=== PATIENT | female | born 1975 | race Caucasian/White ===

== ENCOUNTER 2018-03-25 01:16 | Outpatient (CLI) | payer MEDICAID, SELFPAY ==
--- NOTE | 2018-03-25 12:58 | DI.MAMMO_ITS ---
SYMPTOM/DIAGNOSIS: SCREENING, BASELINE, Z12.31 MAMMOGRAMS: Mammograms were interpreted according to the usual protocol including computer analysis with CAD system, tomosynthesis and C view imaging. The breast tissue is of moderate radiodensity. There is no dominant mass. There are no suspicious calcifications. A tiny well circumscribed area of nodularity is noted in the upper outer quadrant of the right breast and could represent a small cyst or adenoma. Further evaluation with a mediolateral and craniocaudad compression spot film and ultrasound is recommended on this patient with baseline examination. Breast density, Category B. MQSA ASSESSMENT OF FINDINGS: Incomplete: Needs additional imaging evaluation. Category 0. Patient will receive a letter notifying them of these results. IMPRESSION: Category 0. Further evaluation with compression spot films and ultrasound. BI-RADS category B. There are scattered areas of fibroglandular density.
== END 2018-03-25 01:36 ==
PROVIDERS: PCP Family Medicine; Visit Provider Nurse Practitioner Family
DX: Z12.31 Encounter for screening mammogram for malignant neoplasm of breast (principal); R92.8 Other abnormal and inconclusive findings on diagnostic imaging of breast
CPT/HCPCS: 77063; 77067

== ENCOUNTER 2018-04-01 05:15 | Outpatient (CLI) | payer MEDICAID, SELFPAY ==
--- NOTE | 2018-04-01 10:00 | DI.MAMMO_ITS ---
SYMPTOMS/DIAGNOSIS: NODULARITY UPPER QUADRANT OF RT BREAST, F/U MAMMO ADDITIONAL MAMMOGRAPHIC VIEWS OF THE RIGHT BREAST: Additional images are interpreted according to the usual protocol including tomosynthesis and 2D imaging. Additional mammographic views were obtained to evaluate small upper outer quadrant area of peripheral nodularity in the right breast. Additional mammographic views confirm well circumscribed nodule measuring 5 mm in greatest diameter with a clearly defined hilum. The findings are consistent with an intramammary lymph node. No additional work up recommended. Category I. Breast density Category B. MQSA ASSESSMENT OF FINDINGS: Negative. Category 1. Patient will receive a letter notifying them of these results. BI-RADS category B. There are scattered areas of fibroglandular density.
== END 2018-04-01 05:35 ==
PROVIDERS: PCP Family Medicine; Visit Provider Nurse Practitioner Family
DX: Z12.31 Encounter for screening mammogram for malignant neoplasm of breast (principal); R92.8 Other abnormal and inconclusive findings on diagnostic imaging of breast; N60.81 Other benign mammary dysplasias of right breast
CPT/HCPCS: 77063; 77067

== ENCOUNTER 2019-03-19 10:36 | Outpatient (REF) | payer OTHER, SELFPAY ==
--- NOTE | 2019-03-19 10:15 | PAPFT_PTH ---
PATIENT: Emerita Blake LOC: [facility] U#:[id number] AGE/SX: 43/F ROOM: RE03/19/[address]: STEPHANIE Bansal : 1975 BED: DIS: 03/19/2019 SPEC #: [id number] RECD: 03/19/19 12:52 STATUS: TEMO REQ #: [id number] RAYMUNDO: 03/19/19 10:[address]: Poppy Tse DEPT: [facility] Cytology RECD BY: Jenelle Valdovinos ENTERED: 03/19/19 12:52 SP TYPE: PAPFT OTHR DR: Jared Ang MD Tissues: 1 - CX/ENDOCX FOR PAP SMEARS Procedures: PAP THIN PREP/[facility] Screening HPV DNA PROBE Comments: [id number]
== END 2019-03-19 10:56 ==
LOC: LBN 10:36
PROVIDERS: PCP Family Medicine; Visit Provider Nurse Practitioner Family
DX: Z12.4 Encounter for screening for malignant neoplasm of cervix (principal); Z11.51 Encounter for screening for human papillomavirus (HPV)
CPT/HCPCS: 88142; 87624

== ENCOUNTER 2019-07-16 19:34 | Outpatient (REF) | payer OTHER, SELFPAY ==
[2019-07-16 20:09] LABS: Abs Immature Grans 0.01 k/cumm (0.0-0.09); Absolute Basophil Count 0.03 k/cumm (0.0-0.2); Absolute Eosinophil Count 0.17 k/cumm (0.0-0.7); Absolute Lymphocyte Count 2.21 k/cumm (1.2-3.4); Absolute Monocyte Count 0.37 k/cumm (0.11-0.7); Absolute Neutrophil Count 2.59 k/cumm (1.2-6.7); Basophils % 0.6; Eosinophils % 3.2; HCT 40.8 % (36.0-46.0); HGB 13.6 g/dL (12.0-15.5); Immature Grans % 0.2 %; Lymphocytes % 41.1; Mean Corp. HGB Concentration 33.3 g/dL (32.0-36.0); Mean Corpuscular Hemoglobin 30.6 pg (27.0-33.0); Mean Corpuscular Volume 91.9 fL (80-95); Mean Platelet Volume 9.1 fL (8.0-11.0); Monocytes % 6.9; Platelet Count 374 x1000/uL (130-400); RBC 4.44 m/cumm (4.00-5.20); RBC Distribution Width 12.2 % (11.7-14.6); White Blood Cell Count 5.38 k/cumm (4.4-10.8)
[2019-07-19 11:39] LABS: Lyme Ab w Rflx to Lyme Confirm Negative (Negative)
[2019-07-21 22:50] LABS: Anaplasma phagocytophilum Negative (Negative); B. miyamotoi PCR Negative (Negative); Babesia divergens/MO-1 Negative (Negative); Babesia duncani Negative (Negative); Babesia microti Negative (Negative); Ehrlichia chaffeensis Negative (Negative); Ehrlichia ewingii/canis Negative (Negative); Ehrlichia muris eauclairensis Negative (Negative)
== END 2019-07-16 19:54 ==
LOC: LBN 19:34
PROVIDERS: PCP Family Medicine; Visit Provider Nurse Practitioner Family
DX: R21 Rash and other nonspecific skin eruption (principal)
CPT/HCPCS: 87798; 85025; 86618

== ENCOUNTER 2019-07-23 02:28 | Outpatient (CLI) | payer OTHER, SELFPAY ==
--- NOTE | 2019-07-23 08:15 | DI.US_ITS ---
EXAM: US SOFT TISSUE HEAD OR NECK CLINICAL HISTORY: ?fullness to base of posterior neck,r/o collection. TECHNIQUE: Ultrasound was performed using standard protocol. COMPARISON: No exams were available for comparison FINDINGS: Sonographic assessment utilizing grayscale and color Doppler imaging was performed and targeted to th e area of clinical concern. There were several round well-circumscribed hypoechoic masses seen in the soft tissues of the posteri or neck. The largest measures 0.6 x 0.3 x 0.5 cm. No internal blood flow is seen. No other cystic or solid masses are seen in the soft tissues. IMPRESSION: Several ovoid well-circumscribed avascular masses in the posterior neck. The largest measures 0.6 cm in diameter. These findings are nonspecific. These may represent small lymph nodes. No other soft tissue mass is seen. No evidence of an abscess. If further imaging is warranted, a CT scan of the neck with contrast should be considered for further evaluation and characterization. DATA REPOSITORY:
== END 2019-07-23 02:48 ==
PROVIDERS: PCP Family Medicine; Visit Provider Nurse Practitioner Family
DX: R22.1 Localized swelling, mass and lump, neck (principal); R59.0 Localized enlarged lymph nodes; R21 Rash and other nonspecific skin eruption
CPT/HCPCS: 76536

== ENCOUNTER → 2021-10-09 02:25 | Outpatient (CLI) | payer BC, SELFPAY ==
--- NOTE | 2021-10-09 07:30 | DI.MAMMO_ITS ---
Exam(s) MAMMO SCREENING EXAM: MAMMO SCREENING CLINICAL HISTORY: screening,Z12.39 TECHNIQUE: Mammograms were interpreted according to the usual protocol including computer analysis w [employer] CAD system, tomosynthesis and C-view imaging. COMPARISON: 2019 FINDINGS: The breasts are composed of scattered fibroglandular densities, Breast Density category B. No suspicious masses or suspicious microcalcifications are seen. No skin thickening or abnormal axillary lymph nodes are seen. There has been no significant change from prior exams. IMPRESSION: BI-RADS Category 1, Negative mammogram Yearly screening mammography is recommended. Breast Density - Category B, scattered fibroglandular densities. A negative radiographic report should not delay biopsy if a dominant or clinically suspicious mass is present. Up to ten percent of cancers are not identified on mammography. A negative report may reinforce clinical impression. Adenosis and dense breasts may obscure an underlying neoplasm. False positive reports average 6 to 10%. Patient will receive a letter notifying them of these results.
== END ==
PROVIDERS: PCP Family Medicine; Visit Provider Nurse Practitioner Family
DX: Z12.31 Encounter for screening mammogram for malignant neoplasm of breast (principal)
CPT/HCPCS: 77063; 77067

== ENCOUNTER 2022-06-17 11:39 | Outpatient (REF) | payer BC, SELFPAY ==
--- NOTE | 2022-06-17 10:20 | PAPFT_PTH ---
PATIENT: Emerita Blake LOC: [facility] U#:[id number] AGE/SX: 46/F ROOM: RE06/17/[address]: Lynda Ramos NP : 1975 BED: DIS: 06/17/2022 SPEC #: [id number] RECD: 06/17/22 12:52 STATUS: TEMO REQ #: [id number] RAYMUNDO: 06/17/22 10:[address]: Lynda Ramos NP DEPT: [facility] Cytology RECD BY: Jenelle Valdovinos ENTERED: 06/17/22 12:52 SP TYPE: PAPFT OTHR DR: Tatyana Ross Tissues: 1 - CX/ENDOCX FOR PAP SMEARS Procedures: PAP THIN PREP/[facility] Screening HPV DNA PROBE Comments: [id number]
== END 2022-06-17 11:40 | disposition home or self-care (01) ==
LOC: LBN 11:39
PROVIDERS: PCP Family Medicine; Visit Provider Nurse Practitioner Women's Health
DX: Z12.4 Encounter for screening for malignant neoplasm of cervix (principal); Z11.51 Encounter for screening for human papillomavirus (HPV)
CPT/HCPCS: 88142; 87624

== ENCOUNTER → 2023-06-25 01:27 | Outpatient (CLI) | payer OTHER, SELFPAY ==
--- NOTE | 2023-06-25 12:15 | DI.MAMMO_ITS ---
Exam(s) MAMMO SCREENING EXAM: MAMMO SCREENING CLINICAL HISTORY: screening TECHNIQUE: Bilateral full field digital CC and MLO mammographic images were obtained with 3D tomosyn thesis and utilizing computer aided detection (CAD). COMPARISON: Available for comparison. FINDINGS: Masses/Architectural Distortion: None seen. Microcalcifications: No suspicious pleomorphic-type are seen. Skin Thickening/Nipple Retraction: None. IMPRESSION: 1. No significant interval change with no specific features of malignancy noted. 2. Unless there is more urgent need, screening mammography is recommended, as per [employer] guidelines. BI-RADS Category 1 - Negative Breast Density - Category B - Scattered areas of fibroglandular density Breast density category C or D implies that the patient has dense breast tissue. Dense breast tissue is very common and is not abnormal but dense breast tissue can make it harder to find cancer on a ma mmogram. Also, dense breast tissue may increase their breast cancer risk. This information about the result of the mammogram report was provided to the patient to raise their awareness. Use this report when you speak with the patient about their risks for breast cancer, which includes their family hist ory. At that time, you may recommend for more screening tests (Ultrasound or MRI) as they might be us eful based on their risk. A negative radiographic report should not delay biopsy if a dominant or clinically suspicious mass is present. Up to ten percent of cancers are not identified on mammography. A negative report may reinforce clinical impression. Adenosis and dense breasts may obscure an underlying neoplasm. False positive reports average 6 to 10%. Patient will receive a letter notifying them of these results.
== END ==
PROVIDERS: Visit Provider Nurse Practitioner Women's Health
DX: Z12.31 Encounter for screening mammogram for malignant neoplasm of breast (principal)
CPT/HCPCS: 77063; 77067

== ENCOUNTER 2024-04-26 16:20 | Outpatient (REF) | payer BC, SELFPAY | END 2024-04-26 16:21 | disposition home or self-care (01) | LOC: LBN 16:20 | PROVIDERS: Visit Provider Advanced Practice Midwife | DX: R30.0 Dysuria (principal) | CPT/HCPCS: 87077; 87086; 87186; 87480; 87510; 87660 ==

== ENCOUNTER 2024-06-07 11:33 | Outpatient (REF) | payer BC, SELFPAY | END 2024-06-07 11:34 | disposition home or self-care (01) | LOC: LBN 11:33 | PROVIDERS: Visit Provider Nurse Practitioner Women's Health | DX: R30.0 Dysuria (principal); N39.0 Urinary tract infection, site not specified; T50.905A Adverse effect of unspecified drugs, medicaments and biological substances, initial encounter; R35.0 Frequency of micturition; R23.2 Flushing | CPT/HCPCS: 87086 ==

== ENCOUNTER 2024-09-27 03:56 | Outpatient (CLI) | payer BC, SELFPAY ==
[2024-09-27 08:16] LABS: Hemoglobin A1C 5.4 % (<5.7)
[2024-09-27 08:23] LABS: Anion Gap 9.3 mmol/L (3-11); BUN 15 mg/dL (7-18); CO2 26.7 mmol/L (21.0-32.0); Calcium 9.1 mg/dL (8.5-10.1); Calculated LDL 89 mg/dL (<100); Chloride 105 mmol/L (98-107); Cholesterol 160 mg/dL (<200); Estimated GFR 89.71 (mL/min/1.73m2); Glucose 97 mg/dL (74-106); HDL Cholesterol 59 mg/dL (>or=50); Potassium 4.3 mmol/L (3.5-5.1); Sodium 141 mmol/L (136-145); Triglyceride 62 mg/dL (<150)
== END 2024-09-27 03:57 | disposition home or self-care (01) ==
LOC: LBO 03:56
PROVIDERS: PCP Nurse Practitioner Family; Visit Provider Nurse Practitioner Family
DX: Z13.6 Encounter for screening for cardiovascular disorders (principal); Z13.1 Encounter for screening for diabetes mellitus; R63.5 Abnormal weight gain
CPT/HCPCS: 36415; 80048; 80061; 83036

== ENCOUNTER 2024-10-25 18:20 | Outpatient (REF) | payer BC, SELFPAY | END 2024-10-25 18:21 | disposition home or self-care (01) | LOC: LBN 18:20 | PROVIDERS: PCP Nurse Practitioner Family; Visit Provider Obstetrics & Gynecology | DX: N89.8 Other specified noninflammatory disorders of vagina (principal); N95.1 Menopausal and female climacteric states | CPT/HCPCS: 87480; 87510; 87660 ==

== ENCOUNTER 2024-11-02 15:58 | Outpatient (CLI) | payer BC, SELFPAY ==
[2024-11-02 14:21] LABS: TSH (W/Ref FT4) 1.93 uIU/mL (0.36-3.74)
[2024-11-02 20:23] LABS: FSH 30.1 mIU/mL (See Note)
== END 2024-11-02 15:59 | disposition home or self-care (01) ==
LOC: LBO 15:58
PROVIDERS: PCP Nurse Practitioner Family; Visit Provider Obstetrics & Gynecology
DX: N95.1 Menopausal and female climacteric states (principal); N89.8 Other specified noninflammatory disorders of vagina
CPT/HCPCS: 36415; 82670; 83001; 84146; 84443